=== PATIENT | female | born 1955 | race Caucasian/White ===

== ENCOUNTER 2021-08-15 10:05 | Emergency (ER) | payer MEDICARE, MEDICAID ==
[~2021-08-15] VITALS: Ht 152.4 cm; Wt 48.0 kg
[2021-08-15] MEDS ORDERED: morphine 2 MG/ML inj. syringe IV ONE (10:20)
[2021-08-15] MEDS ORDERED: ondansetron/PF 4mg/2ml inj IV ONE ×2 (10:20→13:00)
--- NOTE | 2021-08-15 10:22 | NUR ---
PT'S SISTER, DIAMOND, CONTACT INFO: [phone]
[2021-08-15] MEDS ORDERED: iohexol 350MG/ML 100ml bottle IV ONE (10:25)
[2021-08-15 10:45] LABS: BASOPHILS # (AUTO) 0.1 X10'3 (0-0.2); BASOPHILS % (AUTO) 0.6 % (0-1); EOSINOPHILS # (AUTO) 0.1 X10'3 (0-0.9); EOSINOPHILS % (AUTO) 0.9 % (0-6); HEMATOCRIT 41.2 % (35.0-45.0); HEMOGLOBIN 14.4 g/dl (12.0-16.0); LYMPHOCYTES # (AUTO) 0.6 X10'3 (1.1-4.8); LYMPHOCYTES % (AUTO) 6.7 % (21-51); MEAN CORPUSCULAR HEMOGLOBIN 30.2 PG (27.0-31.0); MEAN CORPUSCULAR VOLUME 86.4 FL (78-98); MEAN PLATELET VOLUME 6.1 FL (7.4-10.4); MONOCYTES # (AUTO) 0.2 X10'3 (0-0.9); MONOCYTES % (AUTO) 1.8 % (2-12); NEUTROPHILS # (AUTO) 8.8 X10'3 (1.8-7.7); PLATELET COUNT 263 X10'3 (140-440); RED BLOOD COUNT 4.77 X10'6 (4.20-5.60); RED CELL DISTRIBUTION WIDTH 13.5 % (11.5-14.5); WHITE BLOOD COUNT 9.8 X10'3 (4.5-11.0)
[2021-08-15 10:56] LABS: PARTIAL THROMBOPLASTIN TIME 22 SECONDS (22-32)
[2021-08-15 11:04] LABS: MAGNESIUM 1.6 MG/DL (1.5-2.4)
[2021-08-15 11:44] LABS: ALANINE AMINOTRANSFERASE 43 U/L (12-78); ALBUMIN/GLOBULIN RATIO 1.4 (1.1-1.5); ALKALINE PHOSPHATASE 73 IU/L (46-116); ANION GAP 12 (8-16); ASPARTATE AMINO TRANSFERASE 38 U/L (10-37); BILIRUBIN,TOTAL 0.8 MG/DL (0.1-1.0); BLOOD UREA NITROGEN 28 MG/DL (7-18); BUN/CREATININE RATIO 31.8 (6.6-38.0); CALCIUM 8.6 MG/DL (8.5-10.1); CHLORIDE 104 MMOL/L (99-107); CREATININE 0.88 MG/DL (0.40-0.90); GLUCOSE 184 MG/DL (70-104); LIPASE 113 U/L (73-393); SODIUM 141 MMOL/L (135-145); TOTAL CARBON DIOXIDE 25.1 MMOL/L (24-32); TOTAL PROTEIN 6.9 G/DL (6.4-8.2); eGFR 65 ML/MIN
[2021-08-15 12:00] LABS: PLATELET ESTIMATE NORMAL; TOTAL CELLS COUNTED 100
[2021-08-15] MEDS ORDERED: ketorolac trometh. 30mg/ml inj. IV ONE (12:00)
[2021-08-15] MEDS ORDERED: HYDROcodone/acetaminophen 10/325mg tab PO ONE (12:00)
[2021-08-15] MEDS ORDERED: azithromycin 250mg tablet PO ONE (12:30)
[2021-08-15] MEDS ORDERED: AZIT250T2 PO (12:33)
[2021-08-15] MEDS ORDERED: HYDR-3972 PO (12:33)
[2021-08-15 12:57] LABS: URINE AMPHETAMINE SCREEN NEGATIVE (Neg); URINE BARBITUATE SCREEN NEGATIVE (Neg); URINE BENZODIAZEPINES SCREEN NEGATIVE (Neg); URINE CANNABINOID SCREEN POSITIVE (Neg); URINE COCAINE SCREEN NEGATIVE (Neg); URINE METHADONE SCREEN NEGATIVE (Neg); URINE OPIATE SCREEN POSITIVE (Neg); URINE PHENCYCLIDINE SCREEN NEGATIVE (Neg)
[2021-08-15] MEDS ORDERED: normal saline 1000ML IV soln IV ONE (13:20)
[2021-08-15 14:38] VITALS: BP 102/70
== END 2021-08-15 14:39 | disposition home or self-care (01) ==
LOC: ER 10:06
DX: J18.9 Pneumonia, unspecified organism (principal); I95.9 Hypotension, unspecified; R10.84 Generalized abdominal pain; R11.2 Nausea with vomiting, unspecified; J44.9 Chronic obstructive pulmonary disease, unspecified; G89.29 Other chronic pain; Z79.2 Long term (current) use of antibiotics; Z79.899 Other long term (current) drug therapy
CPT/HCPCS: 36415; 71275; 74174; 80053; 80305; 83690; 83735; 83880; 85007; 85025; 85610; 85730; 86885; 86900; 86901; 93005; 96374; 96375; 96376; 99285; J1885; J2270; J2405; J7030; Q9967

== ENCOUNTER 2025-08-08 06:40 | Day surgery (SDC) | payer MEDICARE, MEDICAID ==
[~2025-08-08] VITALS: Ht 152.4 cm; Wt 39.8 kg
[~2025-08-08 06:40] MED LIST: ALBU18HF2 INH; ATOR10TA70 PO; DOCUMENT DATE & TIME OF BETA-BLOCKER PO ONE; EMPA10TA PO; FLUT1BLS4 INH; LIDO700A47 TOP; METO-395 PO; PANT40TA54 PO; SACU1TAB PO; SPIR25TA5 PO; ringers solution, lacted 1,000 ML IV SCH
[2025-08-08 06:58] VITALS: BP 168/90; PULSE 60; RESP 16; TEMP 98.3; O2SAT 99
[2025-08-08] MEDS ORDERED: LIDOcaine 2% Viscous 15ml cup ONE (07:38)
[2025-08-08] MEDS ORDERED: simethicone 40mg/0.6ml oral drops 15ml ONE (08:00)
[2025-08-08 09:35] VITALS: BP 132/90; PULSE 60; RESP 16; O2SAT 100
[2025-08-08 09:45] VITALS: BP 137/81; PULSE 64; RESP 15; O2SAT 96
[2025-08-08 09:55] VITALS: BP 135/78; PULSE 65; RESP 14; O2SAT 97
[2025-08-08 10:05] VITALS: BP 138/72; PULSE 67; RESP 15; O2SAT 98
[2025-08-08] MEDS ORDERED: MIDAZolam 1 MG/ML 5ML VIAL ONE (11:56)
[2025-08-08] MEDS ORDERED: fentaNYL/PF 50MCG/1 ML 2ML syringe ONE (11:56)
== END 2025-08-08 10:05 | disposition home or self-care (01) ==
LOC: GI LAB 06:40
PROVIDERS: ATTEND Internal Medicine Gastroenterology
DX: D50.0 Iron deficiency anemia secondary to blood loss (chronic) (principal); D12.3 Benign neoplasm of transverse colon; K57.30 Diverticulosis of large intestine without perforation or abscess without bleeding; E78.2 Mixed hyperlipidemia; I12.9 Hypertensive chronic kidney disease with stage 1 through stage 4 chronic kidney disease, or unspecified chronic kidney disease; N18.9 Chronic kidney disease, unspecified; I50.22 Chronic systolic (congestive) heart failure; J44.9 Chronic obstructive pulmonary disease, unspecified; K21.9 Gastro-esophageal reflux disease without esophagitis; M81.0 Age-related osteoporosis without current pathological fracture; Z90.710 Acquired absence of both cervix and uterus
CPT/HCPCS: 43239; 45385; 99152; 99153; A4620; J2250; J3010; J7120; Z7512; Z7610